=== PATIENT | male | born 1970 | race Caucasian/White ===

== ENCOUNTER 2016-05-27 08:02 | Emergency (ER) | payer OTHER ==
[~2016-05-27] VITALS: Ht 190.5 cm; Wt 92.9 kg
[~2016-05-27 08:02] MED LIST: DES50 PO; FLONASE; [UNRECOGNIZED DRUG - CODE] PO
[2016-05-27 08:05] VITALS: BP 112/69; PULSE 72; RESP 12; O2SAT 96
--- NOTE | 2016-05-27 08:07 | ED.REPORT ---
HPI-Extremity Problem Upper Date of Service May 27, 2016 ED Provider: Winston Luke MD The patient is a 45 year old male who presents to the emergency department complaining of left hand pain and swelling that began last night around 1999 after he punched a door. His symptoms have worsened since onset. His pain is exacerbated with range of motion. He denies any other injuries or traumas. Nursing Notes Stated Complaint: POSS BROKEN LEFT HAND Chief Complaint: Extremity Trauma Nursing Notes Reviewed: Yes Allergies: Coded Allergies: amoxicillin (Verified Allergy, Intermediate, itchy, 08/11/12) Scheduled Fluticasone-Expunged Drug, Do Not Renew! (Flonase-Expunged Drug, Do Not Renew!) 120 Sprays/16 Gm Aero 1 SPR NA BID IN EACH NOSTRIL [place] Carbonate-Expunged Drug, Do Not Renew (Lithobid-Expunged Drug, Do Not Renew) 300 Mg Tber 600 MG PO BID Trazodone-Expunged Drug, Do Not Renew! (Trazodone-Expunged Drug, Do Not Renew!) 50 Mg Tab 50 MG PO HS Scheduled PRN oxyCODONE-Acetaminophen 5-325 mg (oxyCODONE-Acetaminophen 5-325 mg) 1 Each Tablet 1 TAB PO Q4H PRN PRN For Pain General Time Seen by MD: 08:05 Chief Complaint Hand Injury left Hx Obtained From: Patient, Spouse Arrived By: Walk-in Onset Occurred: 13 - 16 hours ago Symptom Duration: Since onset Caused by: Blunt injury Context: Occurred at: Home injury Location: : Hand left Quality: Painful Severity: Current: Moderate Severity: Maximum: Moderate Associated with: Reports: Swelling Pertinent Negative: Pt denies other symptoms Exacerbated by: Range of motion Recent Healthcare: No recent doctor visit, No recent hospitalization Similar Sx Previous: No Past Medical History Past Medical History Alcohol abuse Past Surgical History Reports: Inguinal hernia repair Family History Noncontributory Smoking History Unknown if Ever Smoker Social History Other Social History: Local resident Ambulatory Status Independent Review of Systems Musculoskeletal: Reports: Extremity pain, Extremity swelling, Joint pain, Joint swelling Neurologic: Denies: Focal weakness, Numbness Complete sys rev & neg: except as marked. Physical Exam Initial Vital Signs Vital Signs (First) Date Time Temp Pulse Resp B/P Pulse Ox O2 Delivery O2 Flow Rate FiO2 05/27/16 08:05 36.6 72 12 112/69 96 Room Air Initial VS: Reviewed Head / Eyes: Atraumatic, Normocephalic, PERRL ENT: Mucous membranes moist, Conjunctiva normal, No scleral icterus Neck: Supple, Non-tender, Full range of motion Respiratory: Breath sounds normal, Clear to auscultation, No respiratory distress Cardiovascular: Regular rate & rhythm, Heart sounds normal, Intact distal pulses Abdomen / GI: Soft, Non-tender, No guarding, No rebound, No distention Lymphatic: No lymphadenopathy Lower Extremities: Vascular intact, Neuro intact, No swelling, No tenderness Skin: Warm, Dry, No cyanosis Neurologic: Alert, Oriented, Nonfocal Psychiatric: Mood/affect normal, Behavior normal, Normal thought content General/Constitutional: Awake, Alert, Well appearing Wrist / Hand: Neurologic intact, Vascular intact He has superficial abrasions overlying the knuckles on his left hand. There is moderate swelling and tenderness about the ulnar aspect of his left hand. Skin is intact, there is no evidence of an open fracture. He has good cap refill. Sensation intact. Interpretation & Diagnostics X-Ray Interpretation Xray Interpretation: IMPRESSION: Fifth metacarpal fracture. Dictated by: Maksim Miles M.D. on 05/27/2016 at 8:43 X-Ray Ordered: Hand left Interpretation / Wet Read by: Interpret - Radiologist Procedures Splint Application - Fx Mgt Time: 08:48 Procedure Performed by: Forklift Operator Precise Anatomic Location: left 4th and 5th finger Definitive Fracture Care: Pain control, Splint, Follow up > 4 days Post-Procedure / Complications: Cap refill normal, Post splint vascular nl, Post splint neuro nl, Condition improved, Tolerated procedure well, Patient stable Splint Post-Application Eval Extremity Condition: Cap refill < 2 sec, Distal sensation intact, Distal motor diminished, No compartment syndrome Re-Eval/Medical Decision Med Decision/Clinical Course In summary, the patient is a 45-year-old male who presents the emergency department for evaluation of left hand pain after punching a wall yesterday. Examination reveals swelling and tenderness about the left fifth metacarpal region. He is neurovascular intact with good strength and sensation distally. There is no evidence of open fracture. He is right-hand dominant. Plain films demonstrate angulated/displaced left fifth metacarpal fracture. Given degree of injury I discussed the case with Dr. Alcazar who feels that the patient will likely require surgery and that there is little utility to attempting reduction here in the emergency department. The patient was placed in a radial gutter splint. He will follow up on Saturday morning with orthopedic surgery. His pain was treated with oxycodone and he was provided with a prescription for pain medication. Follow-up and return precautions were reviewed in detail and he was discharged in good condition. Source of Hx: Old records Re-Evaluation/Progress : Time of Eval: 08:54 Re-Evaluation/Progress Note: Discussed plan for discharge with outpatient followup. All questions were addressed. Consultation : Referral / Consult Name: AlcazarMarvin cuevas Laquita DO Consulted With: Orthopedic Call Returned at: 08:55 Depilatory Painter: Will see patient, Agrees with eval, Agrees with plan Note: Will see him tomorrow and operate on Saturday. Counseled Regarding: Diagnosis, Need for follow-up, When/why to return to ED Discharge & Departure Impression: Primary Impression: Metacarpal bone fracture Encounter type: initial encounter Metacarpal bone: fifth Fracture type: closed Metacarpal location: unspecified portion of metacarpal Fracture alignment: displaced Laterality: left Qualified Code: S62.307A - Unspecified fracture of fifth metacarpal bone, left hand, initial encounter for closed fracture Additional Impression: Abrasion of hand Encounter type: initial encounter Laterality: left Qualified Code: S60.512A - Abrasion of left hand, initial encounter Disposition: Home Discharge Condition All VS Reviewed: Yes Condition: Stable Patient Instructions: Hand Fracture (ED), Splint Care (ED) Additional Instructions: Thank you for seeking care at the emergency room. It is difficult for us to make definitive diagnoses in the ED but we believe that you are experiencing pain due to a metacarpal fracture Our primary goal today in the ED was to evaluate you for any life-threatening conditions. Your evaluation was reassuring. You will be discharged with a prescription for oxycodone. You can also apply ice if this helps. Wear the splint until you are seen by an orthopedist. You should follow-up with and biology specialist in the next week. We have given you a referral to Dr. Alcazar. Call his office tomorrow to schedule an appointment. I spoke with him today and he would like to see you in the office tomorrow and operate on Saturday. You should return to the ED immediately if you develop increased pain, swelling or redness, numbness, weakness, fevers, vomiting, or any other concerning signs or symptoms. Thank you for letting us partake in your care today. Narcotic Pain Medicine You have been prescribed a narcotic for pain relief. These drugs are usually combined with acetaminophen (Tylenol#3, Percocet, Darvocet, Anexsia, Vicodin) or aspirin (Empirin#3, Percodan, Synalogs-DC) for increased effect. Narcotics act on the central nervous system to reduce pain; they also impair mental alertness and physical abilities. We advise you not to drink alcohol, drive a car, or operate dangerous equipment when you are taking theses drugs. You can lessen stomach irritation from your medicine by taking it with meals or a full glass of water. Common side effects of narcotics are: Nausea and vomiting, heartburn, consitpation, dizziness, sleepiness, and mood changes. If you have bothersome side effects or symptoms of an allergic reaction (itching, hives, rash), stop taking your medicine and call your doctor or the emergency room right away. Please keep your narcotic medicine well out of the reach of children. Referrals: NOPCP (PCP) Marvin Alcazar Attestation Portions of this note were transcribed by Angela Gilman. I, Dr. Luke personally performed the history, physical exam and medical decision-making; I reviewed and confirmed the accuracy of the information in the transcribed note. Signed by: Tate Zapata, 05/27/2016 and 904. copies to: Marvin Alcazar Beck O MD May 27, 2016 08:07 Angela Gilman May 27, 2016 08:12
--- NOTE | 2016-05-27 08:45 | DRSVH ---
PROCEDURE: X-RAY LEFT HAND, MINIMUM THREE VIEWS ([id number]) INDICATIONS: trauma TECHNIQUE: 3 views of the hand(s) acquired. COMPARISON: None. FINDINGS: Bones: There is a moderately displaced fracture of the mid/distal aspect of the fifth metacarpal. Mod erate anterior angulation of distal fragment. Soft tissues: No suspicious soft tissue calcifications. IMPRESSION: Fifth metacarpal fracture. Dictated by: Maksim Miles M.D. on 05/27/2016 at 8:43 Approved by: Maksim Miles M.D. on 05/27/2016 at 8:44
[2016-05-27] MEDS ORDERED: OXYC1TAB24 PO (08:49)
[2016-05-28] MEDS ORDERED: HYDR-656 PO (14:49)
[2016-05-28] MEDS ORDERED: OXYC5CAP4 PO (14:49)
[2016-05-28] MEDS ORDERED: lithium carbonate (14:49)
[2016-05-28] MEDS ORDERED: trazodone (14:49)
== END 2016-05-27 09:50 | disposition home or self-care (01) ==
LOC: SED 08:02
DX: S62.316A Displaced fracture of base of fifth metacarpal bone, right hand, initial encounter for closed fracture (principal); S60.512A Abrasion of left hand, initial encounter; W22.8XXA Striking against or struck by other objects, initial encounter; Y92.009 Unspecified place in unspecified non-institutional (private) residence as the place of occurrence of the external cause; Y93.89 Activity, other specified; Y99.8 Other external cause status; Z88.0 Allergy status to penicillin

== ENCOUNTER 2016-05-29 12:00 | Day surgery (SDC) | payer OTHER ==
[2016-05-29] VITALS (7 sets, daily range): BP systolic 118–131; BP diastolic 58–84; PULSE 50–95; RESP 12–18; O2SAT 94–99
[~2016-05-29] VITALS: Ht 190.5 cm; Wt 92.8 kg
[~2016-05-29 12:00] MED LIST changes: +CeFAZolin 2 Gm/50 mL D5W IV Premix IV ONE; -DES50 PO; -FLONASE; +HYDR-656 PO; +OXYC5CAP4 PO; -[UNRECOGNIZED DRUG - CODE] PO; +lithium carbonate; +trazodone
[2016-05-29] MEDS ORDERED: fentaNYL-PF 50 mCg/mL 2 mL Inj ONE (12:01)
[2016-05-29] MEDS ORDERED: Propofol 10,000 mCg/mL 20 mL Inj ONE (12:01)
[2016-05-29] MEDS ORDERED: Dexamethasone 4 mg/mL Inj ONE (12:01)
[2016-05-29] MEDS ORDERED: Ondansetron 2 mg/mL 2 mL Inj ONE (12:01)
[2016-05-29] MEDS: Lactated Ringer's 1,000 ML IV SCH ×2 (12:28→14:11)
[2016-05-29] MEDS ORDERED: LIT150 PO (12:34)
[2016-05-29] MEDS ORDERED: TRAZ-115 PO (12:34)
[2016-05-29] MEDS ORDERED: CeFAZolin 2 Gm/50 mL D5W Duplex Bag IV ONE (12:42)
--- NOTE | 2016-05-29 13:32 | PCM.HPANE ---
Patient Data Surgeon Admitting Provider: Attending Provider:Marvin Alczaar DO Primary Care Physician:Swati Other Provider:Samantha Johnson Anesthesia Reason for Visit Left 5TH Metacarpal Shaft Fracture Ht/WT & BMI Height (Feet): 6 Height (Inches): 3 Weight (Kilograms): 92.8 Body Mass Index 25.00 Allergies Coded Allergies: No Known Allergies (Unverified , 05/29/16) Past Anesthesia History Anesthesia History: Denies:: Abnormal Airway, Anesthesia Reactions, Difficult Intubation, Fam Anesthesia Reaction Diabetes History Hx Diabetes?: No MRSA MRSA: Yes (possible hx of, remotely 5 years ago) Medications Hypertension Medication: No Home Meds Incl Beta Lea: No Reported Medications [place] Carbonate Unknown Strength CapsuleUnknown Dose PO DAILY 05/29/16 Trazodone Unknown Strength TabletUnknown Dose PO HS Ref 0 05/29/16 oxyCODONE 5 Mg Capsule5 Mg PO Q6H PRN For Pain Ref 0 05/28/16 hydrOXYzine Hcl (HydrOXYzine Hcl)25 Mg [id number] Mg PO QID PRN For Itching Ref 0 05/28/16 Discontinued Reported Medications [trazodone] No Conflict CheckUnknown Dose HS 05/28/16 [lithium carbonate] No Conflict Check2 Capsule TID 05/28/16 Fluticasone-Expunged Drug, Do Not Renew! (Flonase-Expunged Drug, Do Not Renew!) 120 Sprays/16 Gm Aero1 Spr NA BID #16 GM IN EACH NOSTRIL 07/17/12 [place] Carbonate-Expunged Drug, Do Not Renew (Lithobid-Expunged Drug, Do Not Renew)300 Mg Sraw045 Mg PO BID 07/17/12 Trazodone-Expunged Drug, Do Not Renew! 50 Mg Tab50 Mg PO HS #30 TAB 07/17/12 Discontinued Scripts oxyCODONE-Acetaminophen 5-325 mg 1 Each Tablet1 Tab PO Q4H PRN For Pain #20 TABLET Prov:Winston Luke MD 05/27/16 History History of ENT Problems?: Yes HEENT History: Positive for:: TMJ (grinds, no nightguard) Denies:: Abnormal Airway Cataracts Difficult Intubation Dysphagia Glaucoma Hearing Problem Sinus Problem Teeth Condition: Broken Teeth Cardiovascular History: Denies:: AICD Abdominal Aortic Aneurism Congestive Heart Failure Coronary Artery Disease Heart Murmur Hypertension Irregular Heartbeat Pacemaker Peripheral Vascular Hx of Respiratory Problem?: No Respiratory History: Denies:: Asthma COPD Emphysema Oxygen Administration Pneumonia Tuberculosis Use of C-PAP Machine Use of Inhalers / NEBS Hx Neurologic Problems?: Yes Neurological History: Positive for:: Headaches (occasional ) Denies:: Alzheimer's Disease CVA Dementia Dizziness Multiple Sclerosis Parkinson's Disease Seizures TIA Hx of GI Problems?: No Gastrointestinal History: Denies:: Cirrhosis Diverticulitis Gall Bladder Disease Gastroesphageal Reflux Gastrointestinal Bleeding Heartburn Hepatitis Hiatal Hernia Liver Disease Rectal Bleeding Hx of Problems?: No Genitourinary History: Denies:: Kidney Stones Urinary Tract Infection Male Hx: Denies:: Prostate Problems Scrotal Mass Testicular Surgery Skin History: Denies:: History Skin Disorders? Pressure Ulcers Hx Musculoskeletal Problems?: Yes Musculoskeletal History: Positive for:: Musculoskeletal Trauma (left hand fracture, DOI 05/26) Osteoarthritis Denies:: Back Injury Fibromyalgia Joint Replacement Myasthenia Gravis Rheumatoid Arthritis Hx of Psycho/Social Problems?: Yes Psycho Social History: Positive for:: Anxiety Hx Depression Denies:: Suicide Attempt Hx Surgeries?: Yes (facial reconstruction, right heel fx, ing hernia) Hx Any Other Health Problems?: Yes Other History: Denies:: Cancer Thyroid Disease History Blood Transfusions: Positive for:: Accept Blood Products? Denies:: Blood Transfusions Hx Diabetes: No Hx Alcohol Use: YesAlcoholic Drinks Per Day: 6 pack dailyHx Substance Use: Yes (occasional marijuana ) Smoking Status: Unknown if Ever Smoker Have You Smoked inLast 12 mo: No Stop/Bang S-Snoring: Do You Snore Loudly: Yes T-Tired: feel tired, fatigued: No O-Obsered: Observed not breath: No P-Blood Pressure: treated: No B- Body Mass Index > 35 kg/m2: No A- Age over 50: No N- Neck Large Circumference: No G- Gender Male: Yes ANCA Total Score: 2 ANCA Risk Assessment: Low Risk, <3 Yes Risk Assessment Category Category 1A: Patient has history of documented sleep apnea, and HAS NOT received any narcotic, sedative or anesthesia administration during this stay. Category 1B: Patient has history of documented sleep apnea, and HAS received any narcotic , sedative or anesthesia administration during this stay Category 2: Patient has SUSPECTED Obstructive Sleep Apnea, and HAS received any narcotic , sedative or anesthesia administration during this stay. Category 3: Patient has SUSPECTED Obstructive Sleep Apnea and HAS NOT received narcotic, sedative or anesthesia administration during this stay. Category 4: Outpatient in Procedural Areas with known sleep apnea or who screen positive for High Risk via the STOP/BANG questionnaire. Exam Exam Vital Signs Vital Signs Date Time Temp Pulse Resp B/P Pulse Ox O2 Delivery O2 Flow Rate FiO2 05/29/16 12:19 36.4 50 18 119/66 96 Room Air General Appearance: Alert, Oriented X3, Cooperative, No Acute Distress HEENT/AIRWAY: MP 2 Lungs: Clear to Auscultation, Normal Air Movement Heart: Exam Unremarkable, Regular Rate/Rhythm, No Murmurs/Rubs/Gallops Meds/Labs/Diagnostics Admission Meds Current Medications Lactated Ringer's (Lr) 1,000 ml @ 120 mls/hr Q8H20M IV Last administered on t 12:28; Start 05/29/16 at 05:00; Stop 05/29/16 at 13:19; Status DC Plan Impression Patient chart reviewed, patient interviewed and anesthestic plan with risks, benefits, and alternatives discussed, and informed consent obtained. NPO Status: midnight ASA Physical Status: ASA2 Mod Systemic Disease Anesthetic Plan: GA Bene/Risks/Altern/Consents: Yes HP Complete Prior to Induction: Yes Other right lower molars are rotten and loose Socrates Lizarraga MD May 29, 2016 13:32
[2016-05-29] MEDS ORDERED: oxyCODONE-Acetamin 5-325 mg Tablet PO PRN (14:15)
[2016-05-29] MEDS ORDERED: Lactated Ringer's 500 ML IV PRN (14:31)
[2016-05-29] MEDS ORDERED: Lactated Ringer's 1,000 ML IV SCH (14:31)
[2016-05-29] MEDS ORDERED: hydrALAZINE 20 mg/mL Inj IVPUSH PRN (14:35)
[2016-05-29] MEDS ORDERED: Atropine 0.4 mg/mL Inj IVPUSH PRN (14:35)
[2016-05-29] MEDS ORDERED: Phenylephrine 10,000 mCg/mL Inj IVPUSH PRN (14:35)
[2016-05-29] MEDS ORDERED: Dexamethasone 4 mg/mL Inj IVPUSH PRN (14:35)
[2016-05-29] MEDS ORDERED: Ondansetron 2 mg/mL 2 mL Inj IVPUSH PRN (14:35)
[2016-05-29] MEDS ORDERED: MetoCLOpramide 5 mg/mL 2 mL Inj IVPUSH PRN (14:35)
[2016-05-29] MEDS ORDERED: EPHEDrine Sulfate 50 mg/mL Inj IVPUSH PRN (14:35)
[2016-05-29] MEDS ORDERED: Labetalol 5 mg/mL 4 mL Inj IV PRN (14:35)
[2016-05-29] MEDS ORDERED: Lidocaine 1%-Epi 1:100,000 20 mL Inj INFILTRATE ONE (14:46)
--- NOTE | 2016-05-29 15:40 | PCM.ANEP1 ---
Post Anesthesia Phase 1 PACU Phase 1 Assessment Vital Signs Vital Signs Date Time Temp Pulse Resp B/P Pulse Ox O2 Delivery O2 Flow Rate FiO2 05/29/16 15:35 37.0 95 15 126/58 99 Simple Mask 6 05/29/16 12:19 36.4 50 18 119/66 96 Room Air Anesthetic Administered: GA Level of Alertness: Awake, talking MENDIOLA's with Equal Strength: Yes Pain: No Nausea or Vomiting: No Oxygen Delivery: Simple Mask Lungs: Clear to Auscultation, Normal Air Movement Socrates Lizarraga MD May 29, 2016 15:40
--- NOTE | 2016-05-29 15:42 | PCM.ANEP2 ---
Post Anesthesia Evaluation ASA/CMS Post Anesthesia VS in Patient's Normal Range?: Yes Resp Stable; Airway Patent?: Yes CV Function & Hydration Stable: Yes Mental Status Recovered?: Yes Pain control Satisfactory?: Yes N/V Control Satisfactory?: Yes Socrates Lizarraga MD May 29, 2016 15:42
[2016-05-29] MEDS: fentaNYL-PF 50 mCg/mL 2 mL Inj IVPUSH PRN ×2 (15:50→15:55)
[2016-05-29] MEDS: HYDROmorphone 1 mg/mL Inj IVPUSH PRN ×2 (15:51→15:55)
--- NOTE | 2016-05-29 16:54 | OP ---
[address] [address] OPERATIVE REPORT PATIENT: ADRIANNE GOINS : 1970 MR#: [id number] ADMIT: 05/29/2016 JOB ID: [id number] DATE OF SURGERY: 05/29/2016 PREOPERATIVE DIAGNOSIS(ES): Left 5th metacarpal shaft fracture. POSTOPERATIVE DIAGNOSIS(ES): Left 5th metacarpal shaft fracture. PROCEDURE: Open reduction, internal fixation of left 5th metacarpal shaft fracture. SURGEON: Marvin Alcazar DO ANESTHESIA: General. HISTORY: The patient is a pleasant 45-year-old male who sustained a 5th metacarpal shaft fracture after he got angry and punched a wall. There was significant volar displacement and angulation thus I discussed with the patient the risks, benefits, alternatives, and indications to proceed with operative intervention for open reduction, internal fixation left 5th metacarpal shaft fracture. He understood the risks include, but are not limited to, neurovascular injury, tendon injury, infection, failure of fixation, stiffness, and persistent pain, all of which may require further intervention. The patient had all questions answered. Consent was signed and placed in the chart. PROCEDURE IN DETAIL: The patient was brought to the operative suite and placed supine on the operating table. Surgical time-out performed. Everyone in the room was in agreement. After appropriate anesthesia was obtained, a left upper arm tourniquet was applied and the left upper extremity was prepped and draped in sterile fashion. The left upper extremity was then exsanguinated and the tourniquet inflated to 250 mmHg. A standard longitudinal incision was made between the 5th and 4th metacarpal shafts, centered at the level of the distal 5th metacarpal fracture. Dissection was carried down between the extensor digiti minimi and the extensor digitorum communis to the small finger, splitting between the two as they inserted onto the extensor distally. The periosteum was then identified and elevated off of the fracture site. The fracture hematoma was irrigated and debrided. Manual reduction was then performed followed by application of a 2.0 mm cortical lag screw. Excellent fixation was achieved with the lag screw. This was followed by application of a Synthes 5-hole 2.0 mm Y-plate. The plate was held provisionally with nonlocking screws both proximally and distally. Multiple views of fluoroscopy were utilized to verify anatomic reduction and appropriate placement of the hardware. Completion of fixation was performed utilizing locking screws distally within the metacarpal head and nonlocking screws proximally to finish out the shaft fixation. Final radiographic projections under fluoroscopy were utilized. The patient's wrist was brought through a passive wrist extension tenodesis to ensure that no malrotation of the small finger was appreciated. Copious irrigation was performed. The overlying fascia was closed overlying the plate with 4-0 Vicryl followed by repair of the distal split between extensor digitorum communis to the small finger and the extensor digitorum minimi with a [id number]-[id number]-[id number] nylon suture. The skin was then closed with 4-0 nylon in simple interrupted fashion. The patient was then placed in a well-padded well-molded ulnar gutter splint. ESTIMATED BLOOD LOSS: Less than 1 mL. COMPLICATIONS: None. DISPOSITION: The patient tolerated the procedure well. Anesthesia was reversed. The patient was transferred back to recovery. IMPLANTS: A Synthes 2.0 mm Y-plate from the variable angle locking hand set with a combination of locking screws distally and nonlocking screws proximally. There was also a 2.0 mm lag screw outside the plate. POSTOPERATIVE PLAN: The patient will follow up with occupational therapy this week to have a ulnar gutter brace fashioned which he needs to keep on at all times except for when participating with formal therapy and performing exercises at home. He can move the hand, but not to use as far as any lifting, pushing, or pulling. I will see him back in two weeks and we will repeat x-rays at that time.
== END 2016-05-29 23:59 | disposition home or self-care (01) ==
LOC: SAS 12:00
PROVIDERS: ATTEND Orthopaedic Surgery
DX: S62.327A Displaced fracture of shaft of fifth metacarpal bone, left hand, initial encounter for closed fracture (principal); W22.09XA Striking against other stationary object, initial encounter; Y93.9 Activity, unspecified; Y92.9 Unspecified place or not applicable; F17.220 Nicotine dependence, chewing tobacco, uncomplicated; Y99.9 Unspecified external cause status; F32.9 Major depressive disorder, single episode, unspecified; F41.9 Anxiety disorder, unspecified
CPT/HCPCS: 26615; C1713; J0690; J1100; J1170; J2250; J2405; J3010; J7120